=== PATIENT | female | born 1960 | race Two or more races ===

== ENCOUNTER 2017-04-05 08:53 | Emergency (ER) | payer MEDICAID ==
--- NOTE | 2017-04-05 09:09 | ED Physician Chart ---
Chief Complaint/HPI - Patient Information Date Seen:: 04/05/17 Time Seen:: 09:00 Chief Complaint:: pruritic rash History of Present Illness:: Patient has had a diffuse pruritic rash since yesterday. Allergies:: Allergies Allergy/AdvReac Type Severity Reaction Status Date / Time MDX No Known Allergies - Nka Allergy Verified 04/05/17 09:05 [No Known Allergies - Nka] Vitals:: Vital Signs - 8 hr 04/05/17 09:00 Temp 97.7 F HR 71 RR 16 BP 158/98 O2 Sat % 100 Historian:: Patient Review:: Nurse's Note Reviewed Review of Systems - Review of Systems General/Constitutional: No fever, No chills Skin: Skin lesions, Rash Head: No headache Eyes: No loss of vision ENT: No earache Neck: No neck pain Cardio Vascular: No chest pain Pulmonary: No SOB GI: No nausea, No vomiting G/U: No dysuria Endocrine: No polyuria, No polydipsia Psychiatric: No prior psych history Allergic/Immuno: No urticaria Neurological: No syncope Past Medical History - Past Medical History Past Medical History: HTN Family History: HTN Social History: Smoker, Alcohol Surgical History: None Psychiatricy History: None Family Medical History - Family Member Mother History Unknown: Yes Living Status: Hx Family Diabetes: Yes Physical Exam - Physical Examination General/Constitutional: Well-developed, well-nourished, Alert Head: Atraumatic Eyes: Lids, conjuctiva normal Other Skin comments:: two 1 cm skin excoriations dorsum left forearm ENMT: External ears, nose nl Other ENMT comments:: 4/4 poor dental hygiene Neck: No nuchal rigidity Respiratory: Nl effort/Exclusion, Clear to Auscultation, No Wheeze/Rhonchi/Rales Cardio Vascular: RRR GI: No tenderness/rebounding/guarding, No organomegaly, No hernia Extremities: No tenderness or effusion, No edema Neuro/Psych: No focal deficits Misc: Normal back, No paraspinal tenderness ED Septic Shock - . Is Septic Shock (SBP<90, OR Lactate>4 mmol\L) present?: No - <6hrs of presentation: Vital Signs: Vital Signs - 8 hr 04/05/17 09:00 Temp 97.7 F HR 71 RR 16 BP 158/98 O2 Sat % 100 Reassessment (Disposition) - Reassessment Reassessment Condition:: Unchanged - Diagnosis Diagnosis:: insect or spider bites - Aftercare/Follow up Instructions Aftercare/Follow-Up Instructions:: Refer to Discharge Instructions Medication Prescribed:: atarax 25 mg #20 Sig 1 QID - Patient Disposition Discharge/Transfer:: Home Condition at Disposition:: Stable, Unchanged ED Discharge Plan - Patient Disposition Prescriptions: hydrOXYzine [Atarax*] 25 mg PO QID #20 tab Instructions: Insect Bite, [id number] Additional Instructions: TOLERATED.
[2017-04-05] MEDS ORDERED: OLANZapine 5 mg Oral Disintegrating Tab ONE (10:06)
== END 2017-04-05 09:37 | disposition home or self-care (01) ==
LOC: ER 08:53
DX: L29.9 Pruritus, unspecified (principal); I10 Essential (primary) hypertension; F17.200 Nicotine dependence, unspecified, uncomplicated
CPT/HCPCS: Z7502

== ENCOUNTER 2017-05-07 11:50 | Emergency (ER) | payer MEDICAID ==
[2017-05-07 12:39] LABS: % BASOPHILS 0.5 % (0.0-2.0); % EOSINOPHILS 0.6 % (0.0-5.0); % LYMPHOCYTES 28.4 % (20.0-50.0); % MONOCYTES 4.7 % (2.0-10.0); % NEUTROPHILS 65.8 % (40.0-80.0); HEMATOCRIT 41.7 % (41.0-60); HEMOGLOBIN 14.1 gm/dL (12-16); MEAN CELL VOLUME 94.4 fl (81-100); MEAN CORPUSCULAR HGB CONC 33.9 pg (28.0-36.0); MEAN PLATELET VOLUME 9.2 fl; NEUTROPHILE ABSOLUTE 5.6 Th/cmm (1.8-8.0); PLATELET COUNT 196 Th/cmm (150-400); RED BLOOD COUNT 4.41 Mil/cmm (3.80-5.10); RED CELL DISTRIBUTION WIDTH 14.3 % (11.5-20.0)
[2017-05-07 12:47] LABS: WHITE BLOOD COUNT 8.5 Th/cmm (4.8-10.8)
[2017-05-07 12:55] LABS: URINE BILIRUBIN NEGATIVE (NEGATIVE); URINE BLOOD TRACE (NEGATIVE); URINE GLUCOSE (UA) NEGATIVE (NEGATIVE); URINE KETONE NEGATIVE (NEGATIVE); URINE PROTEIN NEGATIVE (NEGATIVE); URINE UROBILINOGEN 0.2 E.U./dL (0.2 - 1.0)
[2017-05-07 12:59] LABS: INR 1.07 (0.5-1.4); PROTHROMBIN TIME (TEST) 11.1 SECONDS (9.5-11.5); URINE COLOR YELLOW
[2017-05-07 13:01] LABS: URINE BACTERIA 1+ /hpf (NONE SEEN); URINE EPITHELIAL CELLS MODERATE /lpf (FEW); URINE WBC 0-2 /hpf (0-5)
[2017-05-07 13:04] LABS: ALB/GLOB RATIO 1.6 (1.0-1.8); ALKALINE PHOSPHATASE 100 U/L (34-104); ANION GAP 9.2 (7.0-16.0); BILIRUBIN,TOTAL 0.8 mg/dL (0.3-1.0); BUN - UREA NITROGEN 8 mg/dL (7-25); BUN/CREATININE RATIO 13.3; CALCIUM SERUM 9.3 mg/dL (8.6-10.3); CARBON DIOXIDE 25.2 mEq/L (21.0-31.0); CHLORIDE 107 mEq/L (98-107); CREATININE - SERUM 0.6 mg/dL (0.6-1.2); GLUCOSE 84 mg/dL (70-105); POTASSIUM SERUM 3.4 mEq/L (3.5-5.1); SGOT 45 U/L (13-39); SGPT/ALT 28 U/L (7-52); SODIUM SERUM 138 mEq/L (136-145)
[2017-05-07 13:05] LABS: CHOLESTEROL 175 mg/dL (<200); TRIGLYCERIDES 134 mg/dL (<150)
[2017-05-07 13:08] LABS: BARBITURATES URINE NEGATIVE (NEGATIVE); METHADONE URINE NEGATIVE (NEGATIVE)
[2017-05-07 13:11] LABS: AMPHETAMINE URINE NEGATIVE (NEGATIVE)
--- NOTE | 2017-05-07 13:12 | ED Physician Chart ---
ED Chief Complaint/HPI - Patient Information Date Seen:: 05/07/17 Time Seen:: 12:44 Chief Complaint:: alcohol intoxication History of Present Illness:: THIS IS A 56 YO FEMALE WHO SMELLS LIKE ALCOHOL BIB [facility] TODAY WITH A REPORT OF INTOXICATION. SHE DENIES CHEST PAIN, HYPERTENSION AND HEART DISEASE. Allergies:: Allergies Allergy/AdvReac Type Severity Reaction Status Date / Time No Known Allergies Allergy Verified 04/05/17 09:10 Vitals:: Vital Signs - 8 hr 05/07/17 12:40 Temp 97.5 F HR 78 RR 17 BP 144/86 O2 Sat % 100 ED Review of Systems - Review of Systems General/Constitutional: Other (NOT ABLE TO) ED Past Medical History - Past Medical History Obtainable: Yes Past Medical History: PUD/GERD Family History: None Social History: Non Smoker, No Alcohol, No Drug Use, Homeless Family Medical History - Family Member Mother History Unknown: Yes Living Status: Hx Family Diabetes: Yes ED Physical Exam - Physical Examination General/Constitutional: Well-developed, well-nourished, Alert, No distress, GCS 15, Non-toxic appearing, Ambulatory Other Gen/Cons comments:: LETHARGIC Head: Atraumatic Eyes: Lids, conjuctiva normal, PERRL, EOMI Skin: Nl inspection, No rash, No skin lesions, No ecchymosis, Well hydrated, No lymphadenopathy ENMT: External ears, nose nl, Nasal exam nl, Lips, teeth, gums nl (POOR DENTAL REPAIR) Neck: Nontender, Full ROM w/o pain, No JVD, No nuchal rigidity, No bruit, No mass, No stridor Respiratory: Nl effort/Exclusion, Clear to Auscultation, No Wheeze/Rhonchi/Rales Cardio Vascular: RRR, No murmur, gallop, rubs, NL S1 S2 GI: No tenderness/rebounding/guarding, No organomegaly, No hernia, Normal BS's, Nondistended, No mass/bruits, No McBurney tenderness : No CVA tenderness Extremities: No tenderness or effusion, Full ROM, normal strength in all extremities, No edema, Normal digits & nails Neuro/Psych: Alert/oriented (ORIENTED TO NAME ONLY), DTR's symmetric, Normal sensory exam, Normal motor strength, Judgement/insight normal, Mood normal, Normal gait, No focal deficits Misc: normal gait, Normal back, No paraspinal tenderness ED Labs/Radiology/EKG Results - Lab Results Results: Laboratory Tests 05/07/17 05/07/17 05/07/17 12:30 12:30 12:30 WBC 8.5 D RBC 4.41 Hgb 14.1 Hct 41.7 MCV 94.4 MCH 32.0 H MCHC Differential 33.9 RDW 14.3 Plt Count 196 MPV 9.2 Neutrophils % 65.8 Lymphocytes % 28.4 Monocytes % 4.7 Eosinophils % 0.6 Basophils % 0.5 PT INR PTT (Actin FS) Sodium 138 Potassium 3.4 L Chloride 107 Carbon Dioxide 25.2 Anion Gap 9.2 BUN 8 Creatinine 0.6 Est GFR ( Amer) > 60.0 Est GFR (Non-Af Amer) > 60.0 BUN/Creatinine Ratio 13.3 Glucose 84 Calcium 9.3 Total Bilirubin 0.8 AST 45 H ALT 28 Alkaline Phosphatase 100 Total Protein 7.3 Albumin 4.5 Globulin 2.8 Albumin/Globulin Ratio 1.6 Urine Source Urine Color Urine Clarity Urine pH Ur Specific [place] Urine Protein Urine Glucose (UA) Urine Ketones Urine Blood Urine Nitrate Urine Bilirubin Urine Urobilinogen Ur Leukocyte Esterase Urine RBC Urine WBC Ur Epithelial Cells Urine Bacteria Ethyl Alcohol 166 H 05/07/17 05/07/17 12:30 12:30 WBC RBC Hgb Hct MCV MCH MCHC Differential RDW Plt Count MPV Neutrophils % Lymphocytes % Monocytes % Eosinophils % Basophils % PT 11.1 INR 1.07 PTT (Actin FS) 25.4 L Sodium Potassium Chloride Carbon Dioxide Anion Gap BUN Creatinine Est GFR ( Amer) Est GFR (Non-Af Amer) BUN/Creatinine Ratio Glucose Calcium Total Bilirubin AST ALT Alkaline Phosphatase Total Protein Albumin Globulin Albumin/Globulin Ratio Urine Source CLEAN C Urine Color YELLOW Urine Clarity CLEAR Urine pH 5.0 Ur Specific [place] <= 1.005 Urine Protein NEGATIVE Urine Glucose (UA) NEGATIVE Urine Ketones NEGATIVE Urine Blood TRACE Urine Nitrate NEGATIVE Urine Bilirubin NEGATIVE Urine Urobilinogen 0.2 Ur Leukocyte Esterase NEGATIVE Urine RBC 2-5 Urine WBC 0-2 Ur Epithelial Cells MODERATE Urine Bacteria 1+ H Ethyl Alcohol ED Assessment - Assessment General Assessment: ETOH INTOXICATION ED Septic Shock - . Is Septic Shock (SBP<90, OR Lactate>4 mmol\L) present?: No - <6hrs of presentation: Vital Signs: Vital Signs - 8 hr 05/07/17 12:40 Temp 97.5 F HR 78 RR 17 BP 144/86 O2 Sat % 100 ED Reassessment (Disposition) - Reassessment Reassessment Condition:: Improved - Diagnosis Diagnosis:: ALCOHOL INTOXICATION DRUG ABUSE (METH) - Aftercare/Follow up Instructions Aftercare/Follow-Up Instructions:: Counseled pt regarding lab results/diagnosis & need follow up, Refer to Discharge Instructions, Counseled pt & family regarding lab results/diagnosis & need follow up - Patient Disposition Discharge/Transfer:: Home Condition at Disposition:: Improved ED Discharge Plan - Patient Disposition Admit/Discharge/Transfer: PT DISCHARGED HOME Condition at Disposition: Improved
[2017-05-07] MEDS ORDERED: Potassium Chloride Elixir 20 mEq /15 mL UDC PO ONE (15:02)
[2017-05-07] MEDS ORDERED: Potassium Chloride Elixir 20 mEq /15 mL UDC ONE (15:04)
== END 2017-05-07 17:20 | disposition home or self-care (01) ==
LOC: ER 11:50
DX: F10.129 Alcohol abuse with intoxication, unspecified (principal); K21.9 Gastro-esophageal reflux disease without esophagitis; Z87.11 Personal history of peptic ulcer disease
CPT/HCPCS: 99284; 96372; 84484; 36415; 80307; 84443; 86592; 85025; 85610; 85730; 81001; 80320; 80053; 80061; J1885; Z7502